=== PATIENT | female | born 1970 | race African-American/Black ===

== ENCOUNTER 2017-04-14 09:56 | Emergency (ER) | payer BC ==
--- NOTE | ~2017-04-14 | CR253 ---
[facility] A Service of [facility] & [facility] RADIOLOGY TEXT RESULTS PATIENT: PABLITO HOOVER LOCATION: [facility] : 70 UNIT #: [id number] AGE: [address]: Karen Perez SEX: F ORDER DR: [id number] [facility] [address] [place], [place] [address] [id number] E MR#: [id number] Acc #: [id number] NAME: PABLITO HOOVER. : 1970 SEX: F STUDY DATE/TIME: 04/14/2017 10:39 UNIT: [facility] ROOM: STUDY DESCRIPTION: CR Tibia and Fibula 2 Views Rt Attending Physician: Karen Perez P.A.-C. Ordering Physician: Karen Perez P.A.-C. Primary Care Physician: Mikaela Champion M.D. MEDICAL IMAGING REPORT This report is preliminary unless electronic signature is present EXAM Right tibia and fibula, 04/14/2017 10:39 hours HISTORY Patient fell down steps today, right lower leg pain since fall. COMPARISON None FINDINGS AP and lateral views of the tibia and fibula demonstrate no fracture, dislocation or significant degenerative change. IMPRESSION Negative right tibia and fibula. Dictated by... Loretta Edwards M.D. THIS IS AN ELECTRONICALLY VERIFIED REPORT Loretta Edwards M.D. at 04/14/2017 2:28 PM HARJIT/rehan TD: 04/14/2017 11:55 JOB #: [id number] MEDICAL IMAGING REPORT Page 1 of 1 COPY
--- NOTE | ~2017-04-14 | CR211 ---
[facility] A Service of [facility] & [facility] RADIOLOGY TEXT RESULTS PATIENT: PABLITO HOOVER LOCATION: [facility] : 70 UNIT #: [id number] AGE: [address]: Karen Perez SEX: F ORDER DR: [id number] [facility] [address] [place], [place] [address] [id number] E MR#: [id number] Acc #: [id number] NAME: PABLITO HOOVER. : 1970 SEX: F STUDY DATE/TIME: 04/14/2017 10:29 UNIT: [facility] ROOM: STUDY DESCRIPTION: CR Ribs Uni 2 View W PA Ch Rt Attending Physician: Karen Perez P.A.-C. Ordering Physician: Karen Perez P.A.-C. Primary Care Physician: Mikaela Champion M.D. MEDICAL IMAGING REPORT This report is preliminary unless electronic signature is present EXAM Right rib series with chest, 04/14/2017 10:29 hours HISTORY Patient fell down steps today complaining of right rib pain since fall. COMPARISON 02/13/2016, chest film FINDINGS Upright chest film demonstrates normal cardiac, mediastinal and hilar contours. The lungs are clear. There is no pleural effusion or pneumothorax. There is postop change of Lap-Band. AP and oblique views of the right ribs demonstrate no rib fracture. IMPRESSION No evidence of rib fracture, pleural effusion or pneumothorax. No acute cardiopulmonary findings. Dictated by... Loretta Edwards M.D. THIS IS AN ELECTRONICALLY VERIFIED REPORT Loretta Edwards M.D. at 04/14/2017 2:28 PM HARJIT/rehan TD: 04/14/2017 11:53 JOB #: [id number] MEDICAL IMAGING REPORT Page 1 of 1 COPY
--- NOTE | ~2017-04-14 | CR151 ---
[facility] A Service of [facility] & [facility] RADIOLOGY TEXT RESULTS PATIENT: PABLITO HOOVER LOCATION: [facility] : [birth year] UNIT #: [id number] AGE: [address]: Karen Perez SEX: F ORDER DR: [id number] [facility] [address] [place], [place] [address] [id number] E MR#: [id number] Acc #: [id number] NAME: PABLITO HOOVER. : 1970 SEX: F STUDY DATE/TIME: UNIT: [facility] ROOM: STUDY DESCRIPTION: CR Hip Min 2 Views Rt Attending Physician: Karen Perez P.A.-C. Ordering Physician: Karen Perez P.A.-C. Primary Care Physician: Mikaela Champion M.D. MEDICAL IMAGING REPORT This report is preliminary unless electronic signature is present EXAM Right hip 04/14/2017 1036 hours HISTORY Patient fell down steps today with complaint of right hip pain. COMPARISON 08/20/2015 FINDINGS AP pelvis and frog lateral view right hip demonstrate overall normal bone density. There is no hip fracture or dislocation. Sacrum and sacroiliac joints appear normal. There are small soft tissue calcifications or enthesopathic changes of both greater trochanters similar to prior study. IMPRESSION 1. No hip or pelvic fracture. 2. Soft tissue calcifications or enthesopathic changes are noted at both greater trochanters similar to 08/20/2015. Dictated by... Loretta Edwards M.D. THIS IS AN ELECTRONICALLY VERIFIED REPORT Loretta Edwards M.D. at 04/14/2017 2:28 PM SMM/to TD: 04/14/2017 12:19 JOB #: [id number] MEDICAL IMAGING REPORT Page 1 of 1 COPY
[~2017-04-14 09:56] MED LIST: ZOFRAN ODT4 MG PO
== END 2017-04-14 11:15 | disposition home or self-care (01) ==
LOC: CED 09:56 → CFTX 09:56
DX: S76.311A Strain of muscle, fascia and tendon of the posterior muscle group at thigh level, right thigh, initial encounter (principal); S86.211A Strain of muscle(s) and tendon(s) of anterior muscle group at lower leg level, right leg, initial encounter; S76.011A Strain of muscle, fascia and tendon of right hip, initial encounter; S29.011A Strain of muscle and tendon of front wall of thorax, initial encounter; W19.XXXA Unspecified fall, initial encounter; Y92.009 Unspecified place in unspecified non-institutional (private) residence as the place of occurrence of the external cause
CPT/HCPCS: 29540; 71101; 73502; 73590; 99284